=== PATIENT | male | born 1960 | race Caucasian/White ===

== ENCOUNTER 2017-10-02 12:26 | Inpatient (IN) | payer MEDICARE ==
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
[2017-10-02 14:58] VITALS: BP 118/74
[2017-10-02] MEDS ORDERED: Magnesium Hydroxide (MOM) 30 mL UDC PO PRN (15:04)
[2017-10-02] MEDS ORDERED: Maalox 30 mL Cup PO PRN (15:04)
--- NOTE | 2017-10-02 23:12 | History & Physical ---
ADMIT DATE: 10/02/2017 REASON FOR ADMISSION: Psychiatric disorder. HISTORY OF PRESENT ILLNESS: This is a 57-year-old male who was admitted to Geropsych Unit at [facility] for underlying psychiatric illness by Dr. Lorenzo. Dr. Lorenzo requested medical H and P in this patient. The patient said that he is doing fine. He denies any chest pain, no trouble breathing. No diarrhea, no vomiting, no fever, no chills, no complaints. PAST MEDICAL HISTORY: None reported. PAST SURGICAL HISTORY: None reported. SOCIAL HISTORY: The patient said that he smokes cigarettes daily. He denies alcohol and drug use. CURRENT MEDICATIONS: On Ativan, milk of magnesia, multivitamin, Risperdal, Tylenol, Maalox, and Ambien. REVIEW OF SYSTEMS: As per HPI, 12-point system review appears negative. PHYSICAL EXAMINATION: VITAL SIGNS: Temperature 97.4, pulse 77, respirations 19, blood pressure 132/70, and 97% on room air. Pain 0/10. GENERAL APPEARANCE: The patient does not seem in acute distress. CARDIOVASCULAR: S1, S2 normal. LUNGS: Clear to auscultation bilaterally. ABDOMEN: Soft and nontender. NEUROLOGIC: The patient is awake, but confused, able to move all extremities. Grossly nonfocal. EXTREMITIES: No edema. AVAILABLE LABORATORY DATA: Reviewed. ASSESSMENT: 1. Nicotine dependence. 2. Psych disorder. PLAN: Psych ____ smoking cessation advised. Psych evaluation and management per psychiatrist. Preventive health discussed. The patient is medically stable to participate in Geropsych Unit. Thank you Dr. Lorenzo for allowing me to see this patient. JOB# [id number]
--- NOTE | 2017-10-03 07:31 | Diagnostic Imaging Report ---
Portable chest x-ray History: Cough Allowing for portable technique the heart size is normal. No focal pulmonary parenchymal processes. No hilar or mediastinal abnormalities. Degenerative changes seen to the spine. Impression: No acute abnormalities.
[2017-10-03] MEDS: risperiDONE 1 mg/mL 30 mL Bottle PO SCH ×2 (08:53→16:44)
[2017-10-03] MEDS: Multivitamin Tab PO SCH (08:53)
--- NOTE | 2017-10-04 03:25 | Progress Notes ---
DATE: 10/03/2017 Case was discussed with staff of the patient, reviewed records. The patient continues to be internally preoccupied, looking disheveled, disorganized. Continues to be unable to make safe plan for self-care. Continues to have poor insight, needing redirection, on actively psychotic. I did initiate Risperdal yesterday on him 1 mg twice a day with no side effects, no sedation, no nausea, no extrapyramidal symptoms. We will continue outpatient group therapy, milieu therapy, and adjust the medications. JOB# [id number]
[2017-10-04] MEDS: Multivitamin Tab PO SCH (08:28)
[2017-10-04] MEDS: risperiDONE 1 mg/mL 30 mL Bottle PO SCH ×2 (08:28→16:36)
--- NOTE | 2017-10-05 02:31 | Progress Notes ---
DATE: 10/04/2017 SUBJECTIVE: Chart reviewed and the patient interviewed. Also discussed the patient's condition with the staff and reviewed the records and labs. The patient continued to be confused and he is still forgetful. The patient also is still easily agitated at times and still swinging his arms in the air for no reason. Also, talking to himself and seems to be responding to stimuli. Also, personal hygiene is poor and the patient is disheveled. He does not want to go to the bathroom and he is dirtying himself. He also still needs redirections. On the other hand, the patient started on Risperdal 1 mg twice a day with no side effects. ASSESSMENT: The patient is still psychotic and agitated. TREATMENT PLAN: We will continue to monitor his behavior and condition closely. Also, continue to work on his unpredictable behavior and his agitation and possible dangerous to others as well as self. JOB# [id number]
[2017-10-05] MEDS: risperiDONE 1 mg/mL 30 mL Bottle PO SCH ×2 (09:08→17:17)
[2017-10-05] MEDS: Multivitamin Tab PO SCH (09:16)
[2017-10-06] MEDS: risperiDONE 1 mg/mL 30 mL Bottle PO SCH ×2 (09:21→17:16)
[2017-10-06] MEDS: Multivitamin Tab PO SCH (17:16)
--- NOTE | 2017-10-06 20:31 | Progress Notes ---
DATE: SUBJECTIVE: Chart reviewed and the patient interviewed. Also discussed the patient's condition with the staff and reviewed records and labs. The patient is still withdrawn and isolative. The patient also still wants to stay alone and wants to "they bring me breakfast here." He also still wants to be left alone. Also, during interview, personal hygiene is poor and he is still labile and unpredictable. Otherwise, the patient is compliant with taking his medications and the patient has no side effects of Risperdal. ASSESSMENT: The patient is still psychotic. TREATMENT PLAN: Continue to monitor his behavior and his condition closely. Also, continue adjusting the dose of Risperdal and we will continue to follow up. [facility]# [id number]
--- NOTE | 2017-10-07 05:24 | Progress Notes ---
DATE: 10/06/2017 Chart reviewed and the patient interviewed. Also discussed the patient's condition with the staff and reviewed records and labs. The patient is still withdrawn and isolating himself and stays by himself most of the time. The patient also still wants to be left alone. Also is still disheveled and personal hygiene is still poor. The patient also needs a lot of encouragement to interact and to get out of his isolation. Otherwise, the patient continued to comply with taking his medications with no side effects of medications. ASSESSMENT: The patient is still psychotic, but seems to be less irritable and less agitated. TREATMENT PLAN: Continue to monitor his behavior. Also, encourage the patient to pay more attention to his personal hygiene and staff will help him do that. At the same time, continue to monitor his behavior and medications and continue to follow up. JOB# [id number]
[2017-10-07] MEDS: risperiDONE 1 mg/mL 30 mL Bottle PO SCH ×2 (08:35→16:30)
[2017-10-07] MEDS: Multivitamin Tab PO SCH (08:35)
--- NOTE | 2017-10-07 16:14 | General Progress Note ---
Subjective - Review of Systems Service Date: 10/07/17 Subjective: Patient noted low grade fever no diarrhea or vomiting or any other associated symptoms reported Objective - Physical Exam Vitals and I&O: Vital Signs Temp 99.4 F 10/07/17 15:41 Pulse 108 10/07/17 15:41 Resp 18 10/07/17 15:41 BP 136/76 10/07/17 15:41 Pulse Ox 98 10/07/17 15:41 Intake & Output 10/06/17 10/07/17 10/07/17 18:59 06:59 18:59 Intake Total 1000 240 Balance 1000 240 Intake: Oral 1000 240 Other: # Voids 4 1 # Bowel Movements 1 Stool Characteristics Formed Brown Active Medications: Current Medications Acetaminophen (Tylenol) 650 mg PO Q4HR PRN PRN Reason: Mild Pain / Temp above 100 Stop: 12/01/17 15:03 Al Hydrox/Mg Hydrox/Simethicone (Maalox) 30 ml PO Q4HR PRN PRN Reason: GI DISTRESS Stop: 12/01/17 15:03 Lorazepam (Ativan) 0.5 mg PO Q4HR PRN; Protocol PRN Reason: Anxiety Stop: 11/01/17 15:03 Last Admin: 10/07/17 01:48 Dose: 0.5 mg Magnesium Hydroxide (Milk Of Magnesia) 30 ml PO HS PRN PRN Reason: Constipation Multivitamins/Vitamin C (Theragran) 1 tab PO DAILY DMITRY Stop: 12/02/17 08:59 Last Admin: 10/07/17 08:35 Dose: 1 tab Risperidone (Risperdal) 1 mg PO BID DMITRY PRN Reason: Protocol Stop: 12/02/17 08:59 Last Admin: 10/07/17 08:35 Dose: 1 mg Zolpidem Tartrate (Ambien) 5 mg PO HS PRN PRN Reason: Insomnia Stop: 12/01/17 15:03 Last Admin: 10/05/17 21:38 Dose: 5 mg Cardiovascular: Regular rate Lungs: Clear to auscultation Abdomen: Soft, no Tender Assessment/Plan - Assessment Assessment: Fever Mental health disorder - Plan Plan: Labs in am Monitor fever Psych follow up
[2017-10-08 07:29] LABS: % EOSINOPHILS 1.6 % (0.0-5.0); % LYMPHOCYTES 33.4 % (20.0-50.0); % MONOCYTES 6.3 % (2.0-10.0); % NEUTROPHILS 57.7 % (40.0-80.0); BASOPHILE ABSOLUTE 0.1 Th/cumm (0-0.2); EOSINOPHILE ABSOLUTE 0.2 Th/cmm (0.1-0.4); HEMATOCRIT 43.2 % (41.0-60); HEMOGLOBIN 14.5 gm/dL (12-16); LYMPHOCYTE ABSOLUTE 3.3 Th/cmm (1.5-3.0); MEAN CELL VOLUME 88.3 fl (80-99); MEAN CORPUSCULAR HEMOGLOBIN 29.5 pg (26.0-30.0); MEAN CORPUSCULAR HGB CONC 33.5 pg (28.0-36.0); MEAN PLATELET VOLUME 7.5 fl; MONOCYTE ABSOLUTE 0.6 Th/cmm (0.3-1.0); NEUTROPHILE ABSOLUTE 5.7 Th/cmm (1.8-8.0); PLATELET COUNT 188 Th/cmm (150-400); RED CELL DISTRIBUTION WIDTH 11.7 % (11.5-20.0); WHITE BLOOD COUNT 9.9 Th/cmm (4.8-10.8)
[2017-10-08 07:56] LABS: ANION GAP 8.8 (7.0-16.0); BUN - UREA NITROGEN 12 mg/dL (7-25); CALCIUM SERUM 9.2 mg/dL (8.6-10.3); CARBON DIOXIDE 26.5 mEq/L (21.0-31.0); CHLORIDE 100 mEq/L (98-107); CREATININE - SERUM 0.8 mg/dL (0.7-1.3); GFR AFRICAN-AMERICAN > 60.0 ml/min (>90); GFR NON AFRICAN-AMERICAN > 60.0 ml/min; GLUCOSE 230 mg/dL (70-105); POTASSIUM SERUM 4.3 mEq/L (3.5-5.1); SODIUM SERUM 131 mEq/L (136-145)
[2017-10-08] MEDS: risperiDONE 1 mg/mL 30 mL Bottle PO SCH ×2 (09:24→16:45)
[2017-10-08] MEDS: Multivitamin Tab PO SCH (09:24)
--- NOTE | 2017-10-08 18:33 | General Progress Note ---
Subjective - Review of Systems Service Date: 10/08/17 Subjective: Patient doing fine afebrile lab reviewed elevated blood sugar low sodium noted Objective - Results Result Diagrams: 10/08/17 07:06 10/08/17 07:06 Recent Labs: Laboratory Last Values WBC 9.9 Th/cmm (4.8-10.8) 10/08/17 07:06 RBC 4.90 Mil/cmm (4.30-5.70) 10/08/17 07:06 Hgb 14.5 gm/dL (12-16) 10/08/17 07:06 Hct 43.2 % (41.0-60) 10/08/17 07:06 MCV 88.3 fl (80-99) 10/08/17 07:06 MCH 29.5 pg (26.0-30.0) 10/08/17 07:06 MCHC Differential 33.5 pg (28.0-36.0) 10/08/17 07:06 RDW 11.7 % (11.5-20.0) 10/08/17 07:06 Plt Count 188 Th/cmm (150-400) 10/08/17 07:06 MPV 7.5 fl 10/08/17 07:06 Neutrophils % 57.7 % (40.0-80.0) 10/08/17 07:06 Lymphocytes % 33.4 % (20.0-50.0) 10/08/17 07:06 Monocytes % 6.3 % (2.0-10.0) 10/08/17 07:06 Eosinophils % 1.6 % (0.0-5.0) 10/08/17 07:06 Basophils % 1.0 % (0.0-2.0) 10/08/17 07:06 Sodium 131 mEq/L (136-145) L 10/08/17 07:06 Potassium 4.3 mEq/L (3.5-5.1) 10/08/17 07:06 Chloride 100 mEq/L (98-107) 10/08/17 07:06 Carbon Dioxide 26.5 mEq/L (21.0-31.0) 10/08/17 07:06 Anion Gap 8.8 (7.0-16.0) 10/08/17 07:06 BUN 12 mg/dL (7-25) 10/08/17 07:06 Creatinine 0.8 mg/dL (0.7-1.3) 10/08/17 07:06 Est GFR ( Amer) > 60.0 ml/min (>90) 10/08/17 07:06 Est GFR (Non-Af Amer) > 60.0 ml/min 10/08/17 07:06 BUN/Creatinine Ratio 15.0 10/08/17 07:06 Glucose 230 mg/dL (70-105) H 10/08/17 07:06 Calcium 9.2 mg/dL (8.6-10.3) 10/08/17 07:06 - Physical Exam Vitals and I&O: Vital Signs Temp 98.4 F 10/08/17 15:04 Pulse 98 10/08/17 15:04 Resp 17 10/08/17 15:04 BP 126/68 10/08/17 15:04 Pulse Ox 97 10/08/17 15:04 Intake & Output 10/07/17 10/08/17 10/08/17 18:59 06:59 18:59 Intake Total 4983 894 8068 Balance 5192 641 8644 Intake: Oral 3799 039 1772 Other: # Voids 4 3 4 # Bowel Movements 1 1 Stool Characteristics Formed Soft Soft Brown Formed Formed Active Medications: Current Medications Acetaminophen (Tylenol) 650 mg PO Q4HR PRN PRN Reason: Mild Pain / Temp above 100 Stop: 12/01/17 15:03 Al Hydrox/Mg Hydrox/Simethicone (Maalox) 30 ml PO Q4HR PRN PRN Reason: GI DISTRESS Stop: 12/01/17 15:03 Lorazepam (Ativan) 0.5 mg PO Q4HR PRN; Protocol PRN Reason: Anxiety Stop: 11/01/17 15:03 Last Admin: 10/07/17 01:48 Dose: 0.5 mg Magnesium Hydroxide (Milk Of Magnesia) 30 ml PO HS PRN PRN Reason: Constipation Multivitamins/Vitamin C (Theragran) 1 tab PO DAILY DMITRY Stop: 12/02/17 08:59 Last Admin: 10/08/17 09:24 Dose: 1 tab Risperidone (Risperdal) 1 mg PO BID DMITRY PRN Reason: Protocol Stop: 12/02/17 08:59 Last Admin: 10/08/17 16:45 Dose: 1 mg Zolpidem Tartrate (Ambien) 5 mg PO HS PRN PRN Reason: Insomnia Stop: 12/01/17 15:03 Last Admin: 10/05/17 21:38 Dose: 5 mg Cardiovascular: Regular rate Lungs: Clear to auscultation Abdomen: Soft, no Tender Assessment/Plan - Assessment Assessment: Hyperglycemia Hyponatremia Fever better Mental health disorder - Plan Plan: Labs in am fever better nursing care Fall precaution Asp precaution Skin care Psych follow up
--- NOTE | 2017-10-08 21:17 | Progress Notes ---
DATE: 10/07/2017 Chart reviewed and the patient interviewed. Also discussed the patient's condition with the staff and reviewed records and labs. The patient is still isolative and withdrawn. The patient also is in a depressed mood, also is interacting minimally with others. The patient also still wants to be left alone, and during interview, the patient's affect is flat. Otherwise, the patient is compliant with taking his medications with no side effects of medications. ASSESSMENT: The patient is still depressed and needs a lot of support system and redirections. TREATMENT PLAN: We will continue to monitor his behavior and his condition closely and continue to work on behavioral modification and followup. JOB# [id number]
--- NOTE | 2017-10-09 00:03 | Progress Notes ---
DATE: 10/08/2017 SUBJECTIVE: Chart reviewed and the patient interviewed. Also discussed the patient's condition with the staff and reviewed the records and labs. The patient continued to be in anxious and depressed mood. The patient also is still isolative. The patient also is not answering questions and stay nude most of the time. The patient also is still paranoid and is still in angry mood at times. Otherwise, the patient is isolating himself and wants to be left alone. ASSESSMENT: The patient is still depressed and angry. TREATMENT PLAN: Continue to monitor his behavior and his condition closely. Also, continue to work in his ineffective coping and continue to follow up. JOB# [id number]
[2017-10-09] MEDS: risperiDONE 1 mg/mL 30 mL Bottle PO SCH ×2 (09:47→18:20)
[2017-10-09] MEDS: Multivitamin Tab PO SCH (09:47)
[2017-10-09 16:17] LABS: A1C % 7.1 % (4.0-6.0)
[2017-10-10] MEDS: Multivitamin Tab PO SCH (09:37)
[2017-10-10] MEDS: risperiDONE 1 mg/mL 30 mL Bottle PO SCH ×2 (10:06→17:42)
--- NOTE | 2017-10-10 19:07 | Progress Notes ---
DATE: SUBJECTIVE: The patient is calmer and he is still withdrawn. The patient also seems to be getting out of his room more. He is still actively responding to stimuli and also he is making bizarre gestures with his hands without any explanation of what are those mean. He also is still at times seems to be suspicious. He has been compliant with taking Risperdal with no side effects. ASSESSMENT: The patient is still psychotic, but showing some improvement. TREATMENT PLAN: Continue to monitor his behavior and continue to work on his confusion and depression. JOB# [id number]
--- NOTE | 2017-10-11 03:20 | Progress Notes ---
DATE: SUBJECTIVE: Chart reviewed and the patient interviewed. Also discussed the patient's condition with the staff and reviewed records and labs. The patient is still confused. The patient also is still agitated and is still actively responding to stimuli. Also, is still restless and is still paranoid. Also, the patient is talking to himself. Otherwise, the patient is compliant with taking his medications with no side effects of medications. ASSESSMENT: The patient is still psychotic. TREATMENT PLAN: We will increase Risperdal to 1.5 mg twice a day. Also, continue to work on his agitation and his psychosis. Also, working with director of casework department in regard to discharge plans and placement issue. JOB# [id number]
[2017-10-11] MEDS: Multivitamin Tab PO SCH (08:27)
[2017-10-11] MEDS: risperiDONE 1 mg/mL 30 mL Bottle PO SCH ×2 (08:28→16:53)
--- NOTE | 2017-10-11 13:28 | General Progress Note ---
Subjective - Review of Systems Service Date: 10/11/17 Subjective: Patient doing fine afebrile lab reviewed Objective - Results Result Diagrams: 10/08/17 07:06 10/08/17 07:06 Recent Labs: Laboratory Last Values WBC 9.9 Th/cmm (4.8-10.8) 10/08/17 07:06 RBC 4.90 Mil/cmm (4.30-5.70) 10/08/17 07:06 Hgb 14.5 gm/dL (12-16) 10/08/17 07:06 Hct 43.2 % (41.0-60) 10/08/17 07:06 MCV 88.3 fl (80-99) 10/08/17 07:06 MCH 29.5 pg (26.0-30.0) 10/08/17 07:06 MCHC Differential 33.5 pg (28.0-36.0) 10/08/17 07:06 RDW 11.7 % (11.5-20.0) 10/08/17 07:06 Plt Count 188 Th/cmm (150-400) 10/08/17 07:06 MPV 7.5 fl 10/08/17 07:06 Neutrophils % 57.7 % (40.0-80.0) 10/08/17 07:06 Lymphocytes % 33.4 % (20.0-50.0) 10/08/17 07:06 Monocytes % 6.3 % (2.0-10.0) 10/08/17 07:06 Eosinophils % 1.6 % (0.0-5.0) 10/08/17 07:06 Basophils % 1.0 % (0.0-2.0) 10/08/17 07:06 Sodium 131 mEq/L (136-145) L 10/08/17 07:06 Potassium 4.3 mEq/L (3.5-5.1) 10/08/17 07:06 Chloride 100 mEq/L (98-107) 10/08/17 07:06 Carbon Dioxide 26.5 mEq/L (21.0-31.0) 10/08/17 07:06 Anion Gap 8.8 (7.0-16.0) 10/08/17 07:06 BUN 12 mg/dL (7-25) 10/08/17 07:06 Creatinine 0.8 mg/dL (0.7-1.3) 10/08/17 07:06 Est GFR ( Amer) > 60.0 ml/min (>90) 10/08/17 07:06 Est GFR (Non-Af Amer) > 60.0 ml/min 10/08/17 07:06 BUN/Creatinine Ratio 15.0 10/08/17 07:06 Glucose 230 mg/dL (70-105) H 10/08/17 07:06 Hemoglobin A1c % 7.1 % (4.0-6.0) H 10/08/17 07:06 Calcium 9.2 mg/dL (8.6-10.3) 10/08/17 07:06 - Physical Exam Vitals and I&O: Vital Signs Temp 98.9 F 10/11/17 06:26 Pulse 79 10/11/17 06:26 Resp 20 10/11/17 10:29 BP 139/71 10/11/17 06:26 Pulse Ox 99 10/11/17 06:26 Intake & Output 10/10/17 10/11/17 10/11/17 18:59 06:59 18:59 Intake Total 1100 600 Balance 1100 600 Intake: Oral 1100 600 Other: # Voids 3 2 # Bowel Movements 0 0 Active Medications: Current Medications Acetaminophen (Tylenol) 650 mg PO Q4HR PRN PRN Reason: Mild Pain / Temp above 100 Stop: 12/01/17 15:03 Al Hydrox/Mg Hydrox/Simethicone (Maalox) 30 ml PO Q4HR PRN PRN Reason: GI DISTRESS Stop: 12/01/17 15:03 Lorazepam (Ativan) 0.5 mg PO Q4HR PRN; Protocol PRN Reason: Anxiety Stop: 11/01/17 15:03 Last Admin: 10/07/17 01:48 Dose: 0.5 mg Magnesium Hydroxide (Milk Of Magnesia) 30 ml PO HS PRN PRN Reason: Constipation Metformin HCl (Glucophage) 500 mg PO BID DMITRY Stop: 12/09/17 16:59 Last Admin: 10/11/17 08:27 Dose: 500 mg Multivitamins/Vitamin C (Theragran) 1 tab PO DAILY DMITRY Stop: 12/02/17 08:59 Last Admin: 10/11/17 08:27 Dose: 1 tab Risperidone (Risperdal) 1.5 mg PO BID DMITRY PRN Reason: Protocol Stop: 12/09/17 07:45 Last Admin: 10/11/17 08:28 Dose: 1.5 mg Zolpidem Tartrate (Ambien) 5 mg PO HS PRN PRN Reason: Insomnia Stop: 12/01/17 15:03 Last Admin: 10/10/17 21:18 Dose: 5 mg Cardiovascular: Regular rate Lungs: Clear to auscultation Abdomen: Tender Assessment/Plan - Assessment Assessment: DM II Mental health disorder - Plan Plan: Metformin started nursing care Fall precaution Asp precaution Skin care Psych follow up Nutritional Asmnt/Malnutr-PDOC - Dietary Evaluation Malnutrition Findings (Please click <Entered> for more info): Nutritional Asmnt/Malnutrition Start: 10/10/17 16: 15 Text: Status: Complete Freq: Document 10/10/17 16:17 [email or web address] (Rec: 10/10/17 16:22 [email or web address] [id number]) Nutritional Asmnt/Malnutrition Patient General Information Nutritional Screening Low Risk Diagnosis schizophrenia Pertinent Medical Hx/Surgical Hx none reported per H&P Subjective Information Pt seen eating in dinning room . Per EMR, PO intake 75-100%. BS 230 noted. Current Diet Order/ Nutrition Support regular Pertinent Medications glucophage, theragran Pertinent Labs 10/08 Na 131, glucsoe 230, A1c 7 .1 Nutritional Hx/Data Height 1.7 m Height (Calculated Centimeters) 170.2 Current Weight (lbs) 61.235 kg Weight (Calculated Kilograms) 61.2 Weight (Calculated Grams) 97253.0 Antoine Body Weight 148 Body Mass Index (BMI) 21.1 Weight Status Approriate GI Symptoms GI Symptoms None Last BM 5 Difficult in: None Skin Integrity/Comment: intact Current %PO Good (75-100%) Estimated Nutritional Goals BEE in Kcals: Using Current wt Calories/Kcals/Kg 25-30 Kcals Calculated 1410-8353 Protein: Using Current wt Protein g/k-1.2 Protein Calculated 61-73 Fluid: ml 1525-1830ml (1ml/kcal) Nutritional Problem 1. Problem Problem altered nutrition related labs Etiology endorine dysfunction Signs/Symptoms: glucsoe 230, A1c 7.1 Malnutrition Alert Protein-Calorie Malnutrition N/A Is there a minimum of two criteria No selected? Query Text:Check all the applicable criteria. A minimum of two criteria are recommended for diagnosis of either severe or non-severe malnutrition. Intervention/Recommendation Comments 1. Consider adding CCHO-60gm diet restriction d/t elevated glucose and a1c. 2. Monitor PO intake, wt, labs and skin integrity 3. F/U as moderate risk in 3-5 days, 10/13-10/15 Expected Outcomes/Goals Expected Outcomes/Goals 1. PO intake to meet at least 75% of nutritional needs. 2. Wt stability, skin to remain intact, labs to approach WNL.
[2017-10-12] MEDS: risperiDONE 1 mg/mL 30 mL Bottle PO SCH ×2 (08:14→16:12)
[2017-10-12] MEDS: Multivitamin Tab PO SCH (08:14)
--- NOTE | 2017-10-13 07:36 | Progress Notes ---
DATE: 10/11/2017 SUBJECTIVE: Chart reviewed and the patient interviewed. Also discussed the patient's condition with the staff and reviewed the records and labs. The patient seems to be less irritable and seems to be slightly calmer than before. The patient also is still confused, but less agitated. The patient said and asked if he can shave his agustin today and it seems like his self-awareness and his personal cleaning is getting better. Otherwise, the patient is compliant with taking his medications with no side effects of medications. ASSESSMENT: The patient is less agitated, but still psychotic. TREATMENT PLAN: Continue monitoring his behavior and his condition closely and continue working on placement issue and discharge plans. JOB# [id number]
[2017-10-13] MEDS: risperiDONE 1 mg/mL 30 mL Bottle PO SCH ×2 (10:00→17:59)
[2017-10-13] MEDS: Multivitamin Tab PO SCH (10:00)
--- NOTE | 2017-10-13 11:32 | Progress Notes ---
DATE: 10/12/2017 SUBJECTIVE: Chart reviewed and the patient interviewed. Also discussed the patient's condition with the staff and reviewed records and labs. The patient is still confused and is still hallucinating and actively responding to stimuli. The patient also still needs redirections. On the other hand, the patient is compliant with taking medications with no side effects of medications. ASSESSMENT: The patient is still psychotic and needs close monitoring. TREATMENT PLAN: Risperdal was continued in a dose of 1.5 mg twice a day. We will continue monitoring his medications and continue to work on adjusting psychotropic medications as well as on placement issue. JOB# [id number]
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
[2017-10-14] MEDS: risperiDONE 1 mg/mL 30 mL Bottle PO SCH ×2 (09:00→16:45)
[2017-10-14] MEDS: Multivitamin Tab PO SCH (09:13)
--- NOTE | 2017-10-14 21:25 | Progress Notes ---
DATE: 10/14/2017 SUBJECTIVE: The patient was seen and evaluated. The patient's chart reviewed. This is Dr. Beth covering for Dr. Lorenzo. Overnight staff reported the patient continues to be very delusional that he wants to hurt his mother. He was initially brought in here, presented with psychotic and disorganized, believing that his mother has been possessed. Today on [id number] evaluation, the patient is guarded. There is no one engaged decision. He reports "I have talked too much already." MENTAL STATUS EXAMINATION: Paranoid, suspicious. ASSESSMENT AND PLAN: The patient is a 57-year-old male who continues with presenting impulsive, unpredictable, targeting behavior that could be very suspicious and at risk. We will continue with primary psychiatrist's treatment plan and goals, which include risperidone 3 mg a day every day to target the patient's severe psychotic symptoms. JOB# [id number]
[2017-10-15] MEDS: Multivitamin Tab PO SCH (09:13)
[2017-10-15] MEDS: risperiDONE 1 mg/mL 30 mL Bottle PO SCH ×2 (09:14→17:17)
--- NOTE | 2017-10-16 03:11 | Progress Notes ---
DATE: The patient was seen, chart reviewed and discussed with staff. The patient continues to be very psychotic and delusional. Continues to report thoughts of wanting to hurt his own mother. The patient stating that he believes his mother to be possessed. He has never been compliant with medications and has generally been redirectable, has not required any p.r.n. medications. PLAN: The patient continues to be extremely paranoid with homicidal ideations, so that he will require inpatient care center treatment. We will monitor patient on a daily basis for response to treatment and titrate meds as needed. JOB# [id number]
[2017-10-16] MEDS: Multivitamin Tab PO SCH (09:46)
[2017-10-16] MEDS: risperiDONE 1 mg/mL 30 mL Bottle PO SCH (10:13)
--- NOTE | 2017-10-16 23:31 | Progress Notes ---
DATE: 10/16/[address] Lorenzo. Case was discussed with staff of the patient, reviewed records. The patient continues to be confused and delusional, continues to be unpredictable, impulsive, and disorganized. He believes his mother has been with staff. He continues to have poor insight. He is compliant with the medication with no side effects, no sedation, no nausea, and no extrapyramidal symptoms. I will be increasing Risperdal dose to 2 mg twice a day. We will continue to work with the patient in group therapy, milieu therapy, and adjust the medications as needed. JOB# [id number]
[2017-10-17] MEDS: Multivitamin Tab PO SCH (08:48)
--- NOTE | 2017-10-17 21:55 | Progress Notes ---
DATE: 10/17/2017 Case discussed with staff of the patient. The patient was supposed to be going to a nursing facility today; however, he refused to go there, so I had to extend his hold. He continues to be unpredictable, impulsive, needing redirection. Continues to be unable to make safe plan for self-care. He is sleeping better, eating better. No side effects with the medication, no sedation, no nausea, no extrapyramidal symptoms. I did increase his Risperdal dose yesterday and we will continue to work with the patient in group therapy, milieu therapy, and adjust the medications as needed. JOB# [id number]
[2017-10-18] MEDS: Multivitamin Tab PO SCH (09:13)
--- NOTE | 2017-10-19 01:36 | Progress Notes ---
DATE: 10/18/2017 SUBJECTIVE: Chart reviewed and the patient interviewed. Also discussed the patient's condition with the staff and reviewed records and labs. The patient is still anxious and he is still slightly confused and depressed, but at the same time, the patient is more visible in the unit and getting out more. The patient also is trying to participate more in groups. He still has mood swings and still has periods of irritability, but at the same time, he is compliant with taking Risperdal, which seems to help the patient's . Personal hygiene is still poor. ASSESSMENT: The patient seems to be less psychotic and shows some improvement. TREATMENT PLAN: Discussed with staff discharge plans and it seems that so far, the patient has no place to go and after he was going to go to [facility] which there is some change in the plan for the patient and discharge is still pending with placement and was working on his improvement. At the same time, we will continue Risperdal and continue to monitor his behavior and his condition closely. JOB# [id number]
[2017-10-19] MEDS: Multivitamin Tab PO SCH (09:29)
--- NOTE | 2017-10-20 16:27 | Discharge Summary ---
DATE OF DISCHARGE: 10/19/2017 FINAL DIAGNOSES AND PRIMARY DIAGNOSES: Schizoaffective disorder, bipolar type, with psychotic features. REASON FOR HOSPITALIZATION: The patient was admitted to the hospital because of increased agitation and irritability and threatened to kill his mother. The patient also is confused and irritable. HOSPITAL COURSE: The patient continued to be confused and agitated. The patient was started on Risperdal and the dose adjusted to 3 mg twice a day. He also needed lots of redirections. Gradually, the patient's affect was brighter. The patient was less agitated and less irritable. Also, interactive more with peers and with others. The patient was accepted to the [facility] and the patient was discharged there. Physical exam of the patient was basically within normal and the patient had no major medical problems while in the hospital. EXPECTED OUTCOME AFTER DISCHARGE: Fair if the patient continued to take his psychotropic medications and follow up with discharge plans. JOB# [id number]
== END 2017-10-19 16:30 | DRG 885 ==
LOC: GERO2 12:26 → GERO 10-04 14:45
PROVIDERS: ADMIT Psychiatry & Neurology Psychiatry; ATTEND Psychiatry & Neurology Psychiatry
DX: F25.0 Schizoaffective disorder, bipolar type (principal); E87.1 Hypo-osmolality and hyponatremia; F29 Unspecified psychosis not due to a substance or known physiological condition; F17.210 Nicotine dependence, cigarettes, uncomplicated; R50.9 Fever, unspecified; R73.9 Hyperglycemia, unspecified
CPT/HCPCS: 36415-UA; 71045-TC; 80048-TC; 83036-90; 85025-TC; 93005; G0410; Z7610

== ENCOUNTER 2017-11-22 18:08 | Inpatient (IN) | payer MEDICARE ==
--- NOTE | 2017-11-22 18:27 | ED Physician Chart ---
ED Chief Complaint/HPI - Patient Information Date Seen:: 11/22/17 Time Seen:: 18:15 Chief Complaint:: Agitation History of Present Illness:: onset x 2 days of agitation and hostile behavior; no report of trauma, SIs, H/As , S/T, neck pain, C/P, SOB, Abd. Pain, cough, A/N/V/D/C, fever, chills, or urinary s/s Allergies:: Allergies Allergy/AdvReac Type Severity Reaction Status Date / Time No Known Allergies Allergy Verified 10/02/17 15:01 Vitals:: Vital Signs - 8 hr 11/22/17 18:16 Temp 99.4 F HR 94 RR 16 BP 124/72 O2 Sat % 97 Historian:: Patient, EMS Review:: Nurse's Note Reviewed, Old Chart Reviewed, EMS run form Reviewed ED Review of Systems - Review of Systems General/Constitutional: No fever, No chills, No weight loss, No weakness, No diaphoresis, No edema, No loss of appetite Skin: No skin lesions, No rash, No bruising Head: No headache, No light-headedness Eyes: No loss of vision, No pain, No diplopia ENT: No earache, No nasal drainage, No sore throat, No tinnitus Neck: No neck pain, No swelling, No thyromegaly, No stiffness, No mass noted Cardio Vascular: No chest pain, No palpitations, No PND, No orthopnea, No edema Pulmonary: No SOB, No cough, No sputum, No wheezing GI: No nausea, No vomiting, No diarrhea, No pain, No melena, No hematochezia, No constipation, No hematemesis G/U: No dysuria, No frequency, No hematuria, No nacturia Musculoskeletal: No bone or joint pain, No back pain, No muscle pain Endocrine: No polyuria, No polydipsia Psychiatric: Prior psych history, Depression, Anxiety, No suicidal ideation, No homicidal ideation, No auditory hallucination, No visual hallucination Hematopoietic: No bruising, No lymphadenopathy Allergic/Immuno: No urticaria, No angioedema Neurological: No syncope, No focal symptoms, No weakness, No paresthesia, No headache, No seizure, No dizziness, No confusion, No vertigo ED Past Medical History - Past Medical History Obtainable: Yes Past Medical History: HTN, DM, Dyslipidemia Family History: Diabetes Melitus, HTN Social History: Non Smoker, No Alcohol, No Drug Use, Single, Care Facility Surgical History: None Psychiatricy History: Depression, Bipolar Medication: Reviewed Family Medical History - Family Member Mother History Unknown: Yes ED Physical Exam - Physical Examination General/Constitutional: Awake, Well-developed, well-nourished, Alert, No distress, GCS 15, Non-toxic appearing, Ambulatory Head: Atraumatic Eyes: Lids, conjuctiva normal, PERRL, EOMI Skin: Nl inspection, No rash, No skin lesions, No ecchymosis, Well hydrated, No lymphadenopathy ENMT: External ears, nose nl, TM canals nl, Nasal exam nl, Lips, teeth, gums nl , Oropharynx nl, Tonsils nl Neck: Nontender, Full ROM w/o pain, No JVD, No nuchal rigidity, No bruit, No mass, No stridor Respiratory: Nl effort/Exclusion, Clear to Auscultation, No Wheeze/Rhonchi/Rales Cardio Vascular: RRR, No murmur, gallop, rubs, NL S1 S2, Carotid/Femoral/Distal pulses equal bilaterally GI: No tenderness/rebounding/guarding, No organomegaly, No hernia, Normal BS's, Nondistended, No mass/bruits, No McBurney tenderness : No CVA tenderness Extremities: No tenderness or effusion, Full ROM, normal strength in all extremities, No edema, Normal digits & nails Neuro/Psych: Alert/oriented, DTR's symmetric, Normal sensory exam, Normal motor strength, Judgement/insight normal, Mood normal, Normal gait, No focal deficits Other Neuro/Psych comments:: + Psychomotor Agitation; no SIs; Mood/Affect: Labile Misc: Normal back, No paraspinal tenderness ED Labs/Radiology/EKG Results - Lab Results Comments:: unremarkable - EKG Interpretations Rate & Rhythm: NSR Comments:: non-specific st-t changes ED Septic Shock - . Is Septic Shock (SBP<90, OR Lactate>4 mmol\L) present?: No - <6hrs of presentation: Vital Signs: Vital Signs - 8 hr 11/22/17 18:16 Temp 99.4 F HR 94 RR 16 BP 124/72 O2 Sat % 97 ED Reassessment (Disposition) - Reassessment Reassessment Condition:: Improved - Diagnosis Diagnosis:: Dx: Agitation; Psychosis; Medical Clearance; Bipolar Disorder - Aftercare/Follow up Instructions Aftercare/Follow-Up Instructions:: Counseled pt regarding lab results/diagnosis & need follow up, Counseled pt & family regarding lab results/diagnosis & need follow up - Patient Disposition Discharge/Transfer:: Acute Care w/in this hosp Admitted to:: [facility] Condition at Disposition:: Stable, Improved
[2017-11-22 18:48] LABS: % BASOPHILS 0.3 % (0.0-2.0); % EOSINOPHILS 0.7 % (0.0-5.0); % LYMPHOCYTES 34.8 % (20.0-50.0); % NEUTROPHILS 57.2 % (40.0-80.0); EOSINOPHILE ABSOLUTE 0.1 Th/cmm (0.1-0.4); HEMATOCRIT 41.8 % (41.0-60); HEMOGLOBIN 14.4 gm/dL (12-16); LYMPHOCYTE ABSOLUTE 3.1 Th/cmm (1.5-3.0); MEAN CELL VOLUME 88.7 fl (80-99); MEAN CORPUSCULAR HEMOGLOBIN 30.5 pg (26.0-30.0); MEAN CORPUSCULAR HGB CONC 34.5 pg (28.0-36.0); MEAN PLATELET VOLUME 7.2 fl; MONOCYTE ABSOLUTE 0.6 Th/cmm (0.3-1.0); NEUTROPHILE ABSOLUTE 5.2 Th/cmm (1.8-8.0); PLATELET COUNT 213 Th/cmm (150-400); RED BLOOD COUNT 4.72 Mil/cmm (4.30-5.70); RED CELL DISTRIBUTION WIDTH 12.6 % (11.5-20.0)
[2017-11-22 19:04] LABS: ALB/GLOB RATIO 1.8 (1.0-1.8); ALBUMIN 4.4 gm/dL (4.2-5.5); ALKALINE PHOSPHATASE 52 U/L (34-104); ANION GAP 9.3 (7.0-16.0); BILIRUBIN,TOTAL 0.5 mg/dL (0.3-1.0); BUN - UREA NITROGEN 12 mg/dL (7-25); CALCIUM SERUM 9.4 mg/dL (8.6-10.3); CARBON DIOXIDE 27.7 mEq/L (21.0-31.0); CHLORIDE 101 mEq/L (98-107); CHOLESTEROL 137 mg/dL (<200); CREATININE - SERUM 0.7 mg/dL (0.7-1.3); GFR AFRICAN-AMERICAN > 60.0 ml/min (>90); GFR NON AFRICAN-AMERICAN > 60.0 ml/min; GLUCOSE 152 mg/dL (70-105); HDL -HIGH DENSITY LIPOPROTEIN 46 mg/dL (23-92); SGOT 19 U/L (13-39); SGPT/ALT 31 U/L (7-52); SODIUM SERUM 134 mEq/L (136-145); TOTAL PROTEIN,SERUM 6.8 gm/dL (6.0-8.3); TRIGLYCERIDES 55 mg/dL (<150)
[2017-11-22 19:06] LABS: ACETAMINOPHEN < 10.0 ug/mL (10.0-30.0); SALICYLATES (ASPIRIN) < 25.0 mg/L (30.0-100.0)
[2017-11-22 19:46] LABS: A1C % 6.9 % (4.0-6.0)
[2017-11-22 20:27] VITALS: BP 130/80
[2017-11-22] MEDS ORDERED: Maalox 30 mL Cup PO PRN (22:17)
[2017-11-23] MEDS: Multivitamin Tab PO SCH (08:49)
[2017-11-23 12:13] LABS: URINE MICROSCOPIC INDICATED? YES; URINE SOURCE CLEAN C
[2017-11-23 12:21] LABS: URINE BILIRUBIN NEGATIVE (NEGATIVE); URINE BLOOD NEGATIVE (NEGATIVE); URINE GLUCOSE (UA) >=1000 mg/dL (NEGATIVE); URINE KETONE NEGATIVE (NEGATIVE); URINE LEUKOCYTE ESTERASE NEGATIVE (NEGATIVE); URINE NITRATE NEGATIVE (NEGATIVE); URINE PH 6.5 (4.6 - 8.0); URINE PROTEIN NEGATIVE (NEGATIVE); URINE UROBILINOGEN 0.2 E.U./dL (0.2 - 1.0)
[2017-11-23 12:29] LABS: URINE CLARITY TURBID (CLEAR); URINE COLOR YELLOW
[2017-11-23 12:30] LABS: URINE AMORPHOUS SEDIMENT MODERATE URATES (NONE SEEN); URINE BACTERIA FEW /hpf (NONE SEEN); URINE EPITHELIAL CELLS OCCASIONAL /lpf (FEW); URINE RBC 0-2 /hpf (0-5); URINE WBC 0-2 /hpf (0-5)
--- NOTE | 2017-11-23 22:42 | Psychosocial Evaluation ---
DATE OF SERVICE: PSYCHIATRIC INITIAL EVALUATION AND MENTAL STATUS EXAM AGE: 57. SEX: Male. PHYSICIAN: Dr. Lorenzo. CHIEF COMPLAINT: Wandering and aggressive behavior. HISTORY OF PRESENT ILLNESS: The patient is a 57-year-old male with history of schizoaffective disorder. The patient was transferred from [facility] because of increased agitation and irritability. The patient has been wandering around the facility and has been in angry and irritable mood. The patient also has been aggressive and has not been able to follow staff directions. He has been easily agitated and in irritable mood. The patient also has not been able to follow any of staff directions in the unit and getting more agitated when staff tried to redirect him. PAST PSYCHIATRIC HISTORY: History of schizoaffective disorder and multiple hospitalizations. PAST MEDICAL HISTORY: The patient has diabetes mellitus. SOCIAL HISTORY: The patient lives in [facility]. No known alcohol or drug use. ALLERGIES: No known allergies. MENTAL STATUS EXAMINATION: The patient appears his stated age. Irritable mood. Anxious. Unkempt. Thought processes are circumstantial, but no flight of ideas. The patient denies any auditory or visual hallucinations, but seems to be paranoid and preoccupied. Denies any thoughts of suicide or homicide. The patient is alert and oriented to time, place, person, and situation. Intact immediate, recent and remote memories. Poor insight and poor judgment. ASSESSMENT: PRIMARY DIAGNOSIS: Schizoaffective disorder, bipolar type, severe, with psychotic features. TREATMENT PLAN: We will monitor psychotropic medications. Also, we will work on behavioral modification and his poor impulse control. ESTIMATED LENGTH OF STAY: 5-7 days. THE PATIENT'S STRENGTHS AND WEAKNESSES: The patient seems to be in relatively fair health. Weaknesses is his poor impulse control. AFTER DISCHARGE PLAN: Outpatient treatment and followup will continue as an outpatient and the patient will return to [facility]. CRITERIA FOR DISCHARGE: Better impulse control. Also, stabilizing psychotropic medications. JOB# [id number]
--- NOTE | 2017-11-24 08:53 | History & Physical ---
ADMIT DATE: REASON FOR ADMISSION: Psychiatric disorder. HISTORY OF PRESENT ILLNESS: This is a 57-year-old male with underlying history of diabetes, admitted to [facility] for underlying psychiatric illness by Dr. Lorenzo. Dr. Lorenzo requested a medical H and P on this patient. The patient says that he is doing fine. Denies any current medical complaints or concerns. PAST MEDICAL HISTORY: Diabetes and mental disorders. PAST SURGICAL HISTORY: No significant past surgical history. FAMILY HISTORY: Denies. SOCIAL HISTORY: Positive for tobacco. Denies alcohol use or street drug use. MEDICATIONS: MAR reviewed ALLERGIES: No known drug allergies. REVIEW OF SYSTEMS: Twelve-point system review appears negative. PHYSICAL EXAMINATION: VITAL SIGNS: Temperature 97.6, pulse 79, respirations 18, blood pressure 136/80 on room air. HEART: S1 and S2 normal. LUNGS: Clear to auscultation. ABDOMEN: Soft and nontender. EXTREMITIES: No edema. AVAILABLE LABORATORY DATA: None. ASSESSMENT: 1. Diabetes. 2. Mental disorder. 3. Nicotine dependency. PLAN: Continue metformin, monitor blood sugars. Labs reviewed. Psych management per psychiatrist. Smoking cessation advised. The patient is medically stable to participate in activities of [facility]. JOB# [id number] [facility]
[2017-11-24] MEDS: Multivitamin Tab PO SCH (09:04)
--- NOTE | 2017-11-24 22:36 | Progress Notes ---
DATE: SUBJECTIVE: Chart reviewed and the patient interviewed. Also discussed the patient's condition with the staff and reviewed records and labs. The patient is still guarded and confused. The patient also is suspicious and is paranoid. Also, isolative and withdrawn. The patient also still needs lots of redirections. Otherwise, the patient continued to comply with taking Risperdal with no side effects. ASSESSMENT: The patient is still agitated and in irritable mood. TREATMENT PLAN: We will continue to monitor his behavior closely. Also, continue Risperdal in a dose of 3 mg twice a day. If the patient continued to be agitated, plan to change Risperdal to another antipsychotic medications to help with his behavior, but we will monitor the patient's behavior today. JOB# [id number]
[2017-11-24 22:49] LABS: AMPHETAMINE URINE NEGATIVE (NEGATIVE); BARBITURATES URINE NEGATIVE (NEGATIVE); BENZODIAZEPINES QUAL URINE NEGATIVE (NEGATIVE); CANNABINOID THC NEGATIVE (NEGATIVE); COCAINE METABOLITE QUAL URINE NEGATIVE (NEGATIVE); METHADONE URINE NEGATIVE (NEGATIVE); METHAMPHETAMINES QUAL URINE NEGATIVE (NEGATIVE); OPIATES (MORPHINE) QUAL. URINE NEGATIVE (NEGATIVE); PHENCYCLIDINE (PCP) URINE NEGATIVE (NEGATIVE); TRICYCLICS (TCA) QUAL. URINE NEGATIVE (NEGATIVE)
[2017-11-25] MEDS: Multivitamin Tab PO SCH (08:20)
--- NOTE | 2017-11-25 19:57 | Progress Notes ---
DATE: 11/25/2017 SUBJECTIVE: Chart reviewed and the patient interviewed. Also discussed the patient's condition with the staff and reviewed records and labs. The patient continued to be withdrawn and calm and cooperative. The patient also is still having episodes of anger and irritability with mood swings. He also still needs redirections. Otherwise, the patient is to continue to take Risperdal 3 mg twice a day with no side effects. ASSESSMENT: The patient is still agitated, but compliant with treatment. TREATMENT PLAN: Continue to monitor his behavior and his condition. Also, continue adjusting psychotropic medications and continue to work on behavioral modification. [facility]# [id number]
[2017-11-26] MEDS: Multivitamin Tab PO SCH (09:28)
--- NOTE | 2017-11-26 19:25 | Progress Notes ---
DATE: 11/26/2017 PSYCHIATRIC PROGRESS NOTE SUBJECTIVE: Chart reviewed and the patient interviewed. Also discussed the patient's condition with the staff and reviewed records and labs. The patient seems to be calmer and seems to be slightly less agitated. The patient also is easier to follow directions. The patient also still withdrawn and interacting minimally with others. He also is compliant with taking his medications with no side effects of medications. ASSESSMENT: The patient seems to be less agitated and showed some improvement. TREATMENT PLAN: Continue to monitor his behavior and his condition. Also, continue Risperdal 3 mg twice a day. Also, continue to work on discharge plans and followup. JOB# [id number]
[2017-11-27] MEDS: Multivitamin Tab PO SCH (08:51)
--- NOTE | 2017-11-28 03:26 | Progress Notes ---
DATE: 11/27/2017 Case was discussed with staff of the patient, reviewed records. This is a 57-year-old male who was admitted on 11/22/2017, because of agitation, disruptive behavior and trying to find facility. Currently, he is stable, he came from [facility]. He is sleeping well, eating well. He denies any current intent to harm himself or anybody. He denies any auditory or visual hallucinations, paranoia. He is compliant with the medication with no side effects, no sedation, no nausea. Currently, Dr. Lorenzo gave an order for discharge. When I talked to him, I did not find any reason to keep him longer, but however, also the discharge order has been in place and the patient will be going anyway, so I do not have any control over it and I could not find any reason to withhold his discharge and the patient will follow up with a psychiatrist upon discharge. JOB# [id number]
--- NOTE | 2017-11-28 21:40 | Discharge Summary ---
DATE OF DISCHARGE: 11/27/2017 AGE: 57. SEX: Male. PHYSICIAN: Dr. Lorenzo. FINAL DIAGNOSES/PRIMARY DIAGNOSES: Schizoaffective disorder, bipolar type, with psychotic features. REASON FOR HOSPITALIZATION: The patient was admitted to the hospital because of increased agitation and irritability and confusion and inability to follow directions from [facility]. HOSPITAL COURSE: The patient continued to be easily agitated and in irritable mood. The patient also was confused. The patient needed lots of redirections. He also was argumentative at times. Gradually, the patient's affect was brighter. The patient was less irritable and less agitated. He also was less confused and he was compliant with taking his medications with no side effect. Physical exam of the patient showed no major medical problems. labs. AFTER DISCHARGE PLANS: The patient was discharged from the hospital with plans for outpatient treatment and follow up there. EXPECTED OUTCOME AFTER DISCHARGE: Fair if the patient continues to take his psychotropic medication and continue to follow up with discharge plans. [facility]# [id number]
== END 2017-11-27 17:30 | DRG 885 ==
LOC: ER 18:08 → GERO2 19:00
PROVIDERS: ADMIT Psychiatry & Neurology Psychiatry; ATTEND Psychiatry & Neurology Psychiatry
DX: F25.0 Schizoaffective disorder, bipolar type (principal); E11.9 Type 2 diabetes mellitus without complications; F17.210 Nicotine dependence, cigarettes, uncomplicated; F29 Unspecified psychosis not due to a substance or known physiological condition; I10 Essential (primary) hypertension; E78.5 Hyperlipidemia, unspecified; Z82.49 Family history of ischemic heart disease and other diseases of the circulatory system; Z83.3 Family history of diabetes mellitus
CPT/HCPCS: 36415-UA; 80053-TC; 80061-TC; 80307; 80320-TC; 80329-TC; 81001-TC; 83036-90; 84443-TC; 84484-TC; 85025-TC; 86592-TC; 93005